=== PATIENT | female | born 1950 | race Caucasian/White ===

== ENCOUNTER 2017-10-04 06:55 | Day surgery (SDC) | payer MEDICARE ==
[2017-09-30 10:32] VITALS: BMI 21.4
[~2017-10-04 06:55] MED LIST: Prevnar 13-Val Conj/PF 0.5 ML SYRINGE IM ONE
--- NOTE | 2017-10-04 11:22 | RAD ---
TOTAL SPINE MYELOGRAM: Date: 10-04-17 History: Upper and lower extremity radiculopathy. FINDINGS: Informed consent for myelogram obtained prior to the procedure. Construction Sales Manager lateral and frontal imaging of the lumbar spine demonstrates rotoscoliosis of the lumbar spine with apex to the left. There is post-operative fusion hardware on the left at the L5-S1 level. Multip le spinal stimulating leads are present with generators overlying the right and left iliac bones. Lateral tie tape machine operator cervical spine radiograph demonstrates C5-6 and C6-7 anterior discectomy and fusion jared dware with disc space narrowing and anterior osteophyte formation at C3-4, C4-5 and C7-T1. Spinal sti mulating leads overlie the cervical spine posteriorly at the C3, C4, and C5 levels. Thoracic spine stimulating leads enter the midthoracic spine central canal in the T8 region and termi kortney over the T6-7 level. The patient was placed on the fluoroscopic table in the prone position and skin overlying the lumbar spine was prepped and draped in normal sterile fashion. Skin overlying the L4-5 interspace was preppe d and draped in normal sterile fashion and anesthetized with 1% buffered Lidocaine. With intermittent fluoroscopic guidance a 22 gauge spinal needle was advanced into the thecal sac and removal of the stylet yields clear cerebral spinal fluid. Approximately 10-12 cc of Isovue 300 was injected, outlining nerve roots of the cauda equina. Patient was placed in Trendelenburg and reverse Trendelenburg positions to extend the contrast media through out the cervicothoracic and lumbar spine. Patient tolerated the procedure well. IMPRESSION: Multilevel degenerative and post-operative change within the spine. Successful total spine myelogram. POS: [facility]
--- NOTE | 2017-10-04 11:43 | CT ---
CERVICAL SPINE CT MYELOGRAM: Date: 10/04/17 COMPARISON: 02/25/16. HISTORY: Upper extremity pain and radiculopathy. TECHNIQUE: Serial axial CT imaging is obtained at 2.5 mm intervals from the skull base through the upper thoraci c spine with intrathecal contrast media. Coronal and sagittal reformatted imaging obtained. FINDINGS: There are new dorsal column stimulators which are inserted via a posterior approach at C1-2 level. Th phu stimulating leads are seen along the posterior aspect of the thecal sac to the right of midline a t C2, C3, and C4 levels. There is anterior diskectomy and fusion hardware at C5-6/C6-7. There is no significant anterolisthesis or retrolisthesis seen. There is mild degenerative change at the atlantoaxial interspace. Craniocervical junction appears int act. There is good opacification of the thecal sac. C2-3: Intervertebral disc height appears within normal limits. No significant central canal or neural quintin inal stenosis. C3-4: There is disc space narrowing, degenerative end plate change, vacuum disc formation, and anterior ost eophyte formation. There is mild disc bulge with partial effacement of the ventral thecal sac and mil d central canal stenosis. There is mild uncovertebral osteophyte encroachment on the right neural for amen with mild right neural foraminal stenosis. C4-5: Mild bilateral facet and uncovertebral osteophyte formation. Mild disc bulge with partial effacement of ventral thecal sac and mild central canal stenosis. Disc space narrowing and anterior osteophyte f ormation noted. C5-6: There is mild posterior osteophyte formation in the right paracentral region with no significant cent ral canal or neural foraminal stenosis noted. C6-7: No central canal or neural foraminal stenosis. C7-T1: There is disc space narrowing and mild disc bulge with partial effacement of ventral thecal sac and m id central canal stenosis. Mild bilateral uncovertebral osteophyte formation, left greater than right , with mild right and moderate left neural foraminal stenosis. No acute osseous abnormality. No worrisome lytic or blastic bone lesion. Incompletely assessed hypodense nodular noted in the right lobe of the thyroid gland measuring up to approximately 1.5 cm, as seen on the prior examination. IMPRESSION: 1. Multilevel degenerative and postoperative change within the cervical spine as detailed above. 2. Thyroid nodule on the right, grossly unchanged. This could be best assessed via thyroid ultrasoun d. POS: [facility]
--- NOTE | 2017-10-04 11:51 | CT ---
CT MYELOGRAM OF THORACIC SPINE: Date: 10/04/17 COMPARISON: None. HISTORY: Pain and upper extremity radiculopathy. TECHNIQUE: Following the intrathecal administration of contrast media, axial CT imaging obtained at 3.75 mm inte rvals through the thoracic spine with coronal and sagittal reformatted imaging. FINDINGS: There is anterior diskectomy and fusion hardware present within the lower cervical spine at C5-6/C6-7 , better assessed on cervical spine CT myelogram. There is good opacification of the thecal sac. There is a dorsal column stimulating device present posteriorly and to the right of midline at the T6 and T7 levels. The spinal leads enter the central canal at the T7-8 level. The T11-12 level is not imaged on this exam and is evaluated on the lumbar spine CT myelogram. There is no anterolisthesis or retrolisthesis. No acute fracture is seen. T1-2: There is disc space narrowing and degenerative end plate change with disc bulge and anterior osteophy te formation causing mild central canal stenosis. There is mild bilateral neural foraminal stenosis o n the basis of facet hypertrophy, left greater than right. T2-3: There is disc space narrowing and disc bulge with mild effacement of the ventral thecal sac and mild central canal stenosis. There is mild left neural foraminal stenosis on the basis of facet hypertroph y. T3-4: There is disc space narrowing and anterior osteophyte formation. There is mild bilateral neural quintin inal stenosis on the basis of facet hypertrophy. T4-5: There is disc space narrowing and anterior osteophyte formation with no central canal stenosis. There is mild bilateral facet hypertrophy, right greater than left, with mild bilateral neural foraminal s tenosis. T5-6: Mild disc bulge with no central canal stenosis. Disc space narrowing and degenerative end plate mao e noted. No neural foraminal stenosis. T6-7: Disc space narrowing, degenerative end plate change, and anterior osteophyte formation noted. No sign ificant central canal or neural foraminal stenosis. T7-8: Disc space narrowing and small right paracentral disc protrusion with no associated central canal or neural foraminal stenosis. T8-9: Disc space narrowing, anterior osteophyte formation, and mild disc bulge present with no significant central canal or neural foraminal stenosis. T9-10: Disc space narrowing, degenerative end plate change, anterior osteophyte formation, and mild disc bul ge with no significant central canal or neural foraminal stenosis. T10-11: Disc space narrowing and anterior osteophyte formation with degenerative end plate change and mild bi lateral facet hypertrophy. Mild bilateral neural foraminal stenosis. No significant central canal mann nosis. The imaged lung parenchyma appears grossly unremarkable. No worrisome lytic or blastic bone lesion. IMPRESSION: Postoperative and degenerative changes are noted within the thoracic spine as described above. No sig nificant central canal stenosis seen. POS: [facility]
[2017-10-04 11:52] VITALS: BP 142/46; TEMP 96.9
--- NOTE | 2017-10-04 12:25 | CT ---
CT MYELOGRAM OF THE LUMBAR SPINE: Date: 10/04/17 COMPARISON: 02/25/16. HISTORY: Bilateral lower extremity radiculopathy. TECHNIQUE: Serial axial CT imaging is obtained at 2.5 mm intervals from the lower thoracic spine through the sac rum with intrathecal contrast media. Coronal and sagittal reformatted imaging obtained. FINDINGS: T11-12: There is disc space narrowing and disc desiccation with mild disc bulge. Bilateral facet hypertrophy noted with mild bilateral neural foraminal stenosis, left greater than right. T12-L1: Mild bilateral facet hypertrophy. No evidence of significant central canal or neural foraminal stenos is. L1-2: Bilateral facet hypertrophy and hypertrophy of the ligamentum flavum with disc space narrowing and mi ld disc bulge. No significant central canal or neural foraminal stenosis. L2-3: Mild disc bulge. No central canal stenosis. Mild bilateral facet hypertrophy with no significant neur al foraminal stenosis. L3-4: There is moderate bilateral facet hypertrophy, right greater than left. There is mild disc bulge with a mild degree of central canal stenosis, which appears similar when compared to prior imaging. There is facet hypertrophy bilaterally with osteophyte encroachment on the left neural foramen and mild le ft neural foraminal stenosis. No significant right neural foraminal stenosis. L4-5: Left-sided pedicle screw noted at L4 and L5 with a vertically oriented interlocking kelsei. There is an intervertebral disc device present. There is disc space narrowing and disc bulge with mild stable rosamaria tral canal stenosis. Mild neural foraminal stenosis noted on the right. L5-S1`: Bilateral laminectomy change is noted. There is osseous fusion of the facet joints. No significant ce ntral canal or neural foraminal stenosis. There is a focus of sclerosis within the iliac bone on the left superiorly, unchanged when compared t o prior imaging, suggesting postoperative change. The visualized retroperitoneal structures appear grossly unremarkable. There is a stable degree of mild rotolevoscoliosis. IMPRESSION: No significant interval change in multilevel postoperative and degenerative change as described above . POS: [facility]
== END 2017-10-04 10:15 | disposition home or self-care (01) ==
LOC: RAD 06:55
PROVIDERS: ATTEND Specialist
PROC: B00B1ZZ Plain Radiography of Spinal Cord using Low Osmolar Contrast (ICD-10-PCS; principal; 2017-10-04)
DX: M54.13 Radiculopathy, cervicothoracic region (principal); M54.14 Radiculopathy, thoracic region; M96.1 Postlaminectomy syndrome, not elsewhere classified; Z91.048 Other nonmedicinal substance allergy status; Z88.8 Allergy status to other drugs, medicaments and biological substances; Z98.890 Other specified postprocedural states
CPT/HCPCS: 62305; 72126; 72129; 72132

== ENCOUNTER 2018-01-26 08:58 | Outpatient (CLI) | payer MEDICARE ==
--- NOTE | 2018-01-26 12:08 | CT ---
CHEST CT WITHOUT CONTRAST: Date: 01/26/18 HISTORY: Left neck pain, radiating to left shoulder and down the left leg for many years. Patient has a pain s timulator of the neck and lower back. Left shoulder pain. Exam is requested to evaluate for lead in t he left shoulder. COMPARISON: None. TECHNIQUE: Chest CT is performed without contrast. Coronal reformatted images are submitted for interpretation. FINDINGS: Heterogeneous right thyroid lobe, incompletely evaluated. Limited evaluation of the mediastinal structures by lack of IV contrast. No mass, lymphadenopathy, or hematoma. Minimal atherosclerosis of the aortic knob. Heart size is within normal limits. No signifi cant pericardial fluid. Visualized aorta has a normal caliber. No periaortic fat stranding. Visualized upper solid organs are unremarkable. Trachea and central bronchi are patent. There is a small bulla in the right upper lobe. There are no suspicious masses in the lung parenchyma. No consolidation, pleural effusion, or pneumothorax. There are no lytic or blastic lesions of the osseous structures. There is evidence of an anterior cervical fusion plate in the lower cervical spine. There is a dorsal column stimulator with wires tracking along the posterior left and right paraspinal region, predominantly in the subcutaneous fat. The three separate sets of dorsal column stimulators do not have any significant inflammatory changes in the subcutaneous fat. There is a set of dorsal co lumn stimulator wires that enter the thecal sac at the T9 level and terminate at approximately the T6 level. Second set of wires course along the posterior aspect of the neck and enter the central spina l canal at approximately T1. Third set of wires also courses along the posterior left thoracic soft t issues and does not enter the canal on the images provided. At the level of the marker, there is no evidence of a solid or cystic mass. No evidence of lymphadeno robert. No evidence of induration of the fat. Two separate wires are noted in the region of the intere st which appear to be uncomplicated. IMPRESSION: Total of three separate neurostimulator wires. One set is along the right posterior region and two se ts are along the left posterior region. No abnormality at the level of the marker. POS: [facility]
== END 2018-01-26 08:59 | disposition home or self-care (01) ==
LOC: SCSCT 08:58
PROVIDERS: ATTEND Specialist
DX: G62.9 Polyneuropathy, unspecified (principal)
CPT/HCPCS: 36415; 71250; 80053; 82306; 84439; 84443

== ENCOUNTER 2018-08-07 11:43 | Outpatient (CLI) | payer MEDICARE ==
[2018-08-07 13:03] LABS: Hemoglobin 13.3 g/dL (12.0-16.0); Mean Corpuscular HGB CONC 33.7 g/dL (32.0-36.0); Mean Corpuscular Hemoglobin 32.9 pg (27.0-31.0); Mean Corpuscular Volume 97.4 fL (78.0-98.0); Platelet Count 235 thou/uL (130-400); RBC Distribution Width 10.8 % (11.5-14.5); Red Blood Cell (RBC) Count 4.03 mill/uL (4.20-5.40); White Blood Cell (WBC) Count 6.1 thou/uL (4.8-10.8)
[2018-08-07 13:11] LABS: PTT 30.9 SEC (22.9-36.1)
[2018-08-07 13:16] LABS: Prothrombin Time 12.9 SEC (12.0-14.7)
[2018-08-07 13:18] LABS: Anion Gap 13 mmol/L (10-20); BUN (Urea Nitrogen) 12 mg/dL (9.8-20.1); Calc. Creatinine Clearance 0 mL/min (70-130); Calcium 9.5 mg/dL (7.8-10.44); Carbon Dioxide 29 mmol/L (23-31); Chloride 102 mmol/L (98-107); Estimated GFR-MDRD 76; Glucose 93 mg/dL (80-115); Potassium 3.4 mmol/L (3.5-5.1); Sodium 141 mmol/L (136-145)
--- NOTE | 2018-08-08 21:08 | EKG ---
Test Reason : Blood Pressure : / mmHG Vent. Rate : 075 BPM Atrial Rate : 075 BPM P-R Int : 122 ms QRS Dur : 082 ms QT Int : 378 ms P-R-T Axes : 054 068 061 degrees QTc Int : 422 ms Normal sinus rhythm Septal infarct , age undetermined Abnormal ECG When compared with ECG of 31-MAR-2016 11:19, Septal infarct is now Present Confirmed by LEIGHTON PRABHAKAR, DR. Hernandez ([id number]) on 08/08/2018 9:08:05 PM Referred By: JAIME Confirmed By:DR. David MANZANARES MD
== END 2018-08-07 11:44 | disposition home or self-care (01) ==
LOC: LABBT 11:43
PROVIDERS: ATTEND Surgery
DX: Z01.818 Encounter for other preprocedural examination (principal); G37.9 Demyelinating disease of central nervous system, unspecified
CPT/HCPCS: 80048; 85027; 85610; 85730; 93005; 93010

== ENCOUNTER 2018-08-10 09:11 | Day surgery (SDC) | payer MEDICARE ==
[2018-08-07 11:58] VITALS: BMI 22.6
[2018-08-10] MEDS ORDERED: Thrombin 5000 UNITS/5 ML VIAL ONE (10:36)
[2018-08-10] MEDS ORDERED: Bacitracin Zinc Ointment 30 gm TUBE ONE (10:36)
[2018-08-10] MEDS ORDERED: Sodium Chloride 0.9% 10 ML ONE (10:36)
[2018-08-10] MEDS ORDERED: Fentanyl 100 MCG/2 ML VIAL ONE ×3 (11:06→15:35)
[2018-08-10] MEDS ORDERED: Bupivacaine HCl 0.5%/Epinephrine 1:200,000/PF 30 ml Vial ONE (11:52)
[2018-08-10] MEDS ORDERED: PROPOFOL 200 MG/20 ML VIAL ONE (12:08)
[2018-08-10] MEDS ORDERED: Ketorolac Tromethamine 30 MG/ML VIAL ONE (12:08)
[2018-08-10] MEDS ORDERED: PHENYLEPHRINE-NS 100 MCG/ML 10 ML SYRINGE ONE (12:08)
[2018-08-10] MEDS ORDERED: Esmolol 100 MG/10 ML VIAL ONE (12:08)
[2018-08-10] MEDS ORDERED: Ondansetron PF 4 MG/2 ML Vial ONE (12:08)
[2018-08-10] MEDS ORDERED: Rocuronium Bromide 10 MG/ML (10ML VIAL) ONE (12:08)
[2018-08-10] MEDS ORDERED: Lidocaine 1% PF 5 ML VIAL ONE (12:08)
[2018-08-10] MEDS ORDERED: Dexamethasone 20 MG/5 ML VIAL ONE (12:08)
[2018-08-10] MEDS ORDERED: Glycopyrrolate 0.2 MG/ML 5 ML SYRINGE ONE (12:08)
[2018-08-10] MEDS ORDERED: Ondansetron HCl/PF 4 MG/2 ML Vial IVP PRN (13:23)
[2018-08-10] MEDS ORDERED: Meperidine HCl/PF 25 MG/ML VIAL SLOW IVP PRN (13:23)
[2018-08-10] MEDS ORDERED: Promethazine HCl 25 MG/ML VIAL SLOW IVP PRN (13:23)
[2018-08-10] MEDS ORDERED: Promethazine HCl 25 MG/ML VIAL IM PRN (13:23)
[2018-08-10] MEDS ORDERED: HYDROmorphone 2 MG/ML VIAL SLOW IVP PRN (13:23)
[2018-08-10] MEDS ORDERED: Morphine Sulfate 2 MG/ML SYRINGE SLOW IVP PRN (13:23)
[2018-08-10] MEDS ORDERED: PACU-Morphine 4MG/ML VIAL SLOW IVP PRN (13:23)
[2018-08-10] MEDS ORDERED: tiZANidine HCl 4 MG TAB PO PRN (15:00)
[2018-08-10] MEDS ORDERED: Acetaminophen/Codeine 30-300mg Tablet PO PRN (15:15)
[2018-08-10] MEDS ORDERED: Mag-Al 1200 mg/1200 mg/30 ML UDCUP PO PRN (15:15)
[2018-08-10] MEDS ORDERED: traMADol HCl 50 MG TAB PO PRN (15:15)
[2018-08-10] MEDS ORDERED: Promethazine HCl 25 MG/ML VIAL IVPB PRN (15:15)
[2018-08-10] MEDS ORDERED: Milk Of Magnesia 30 ML UDCUP PO PRN (15:15)
[2018-08-10] MEDS ORDERED: Bisacodyl 10 MG SUPP PR PRN (15:15)
[2018-08-10] MEDS ORDERED: Acetaminophen 325 MG TAB PO PRN (15:15)
[2018-08-10] MEDS ORDERED: Sodium Chloride 0.9% 1,000 ML IV SCH (15:15)
[2018-08-10] MEDS ORDERED: HYDROmorphone 2 MG/ML VIAL ONE ×2 (15:17→15:43)
[2018-08-10] MEDS ORDERED: Midazolam HCl 2 mg/2 ml Vial ONE (15:22)
[2018-08-10] MEDS ORDERED: Meperidine HCl/PF 25 MG/ML VIAL ONE (16:04)
[2018-08-10] MEDS ORDERED: Fleet Enema 133 ML BOT PR PRN (16:30)
[2018-08-10] MEDS ORDERED: SUMAtriptan Succinate 50 MG TAB PO PRN (16:39)
[2018-08-10] MEDS ORDERED: oxyCODONE 5 MG TAB PO SCH (18:00)
[2018-08-10] MEDS ORDERED: CEFAZOLIN 2 GM in Premix Bag 1 BAG IVPB SCH (19:00)
[2018-08-11] MEDS ORDERED: Estrogens, Conjugated 0.3 MG TAB PO SCH (09:00)
--- NOTE | 2018-08-11 13:01 | OP ---
DATE OF PROCEDURE: 08/10/2018 NEWS INTERN: Wally Mcintosh PA-C Notation should be done as I did the surgery with Hitesh King MD PREOPERATIVE DIAGNOSIS: Need for MRI to assess neural axis. POSTPROCEDURE DIAGNOSIS: Need for MRI to assess neural axis. PROCEDURE PERFORMED: 1. Removal of cervical spinal cord stimulator paddle lead interlaminar placed at an outside institution. 2. Removal of thoracic spinal cord stimulator paddle lead placed with interlaminar approach. 3. Removal of percutaneous spinal cord stimulator. 4. Removal of cervical and thoracic battery packs. DESCRIPTION OF PROCEDURE: After informed consent was obtained from the patient, the patient was brought to the OR. Proper patient, pause, and identification were carried out. She was positioned under excellent general endotracheal anesthesia and positioned prone on the OR table. Following placement of the Coelho Alfredo head of cytogenetics, her head was secured in neutral position. We identified a posterior cervical approach both superior and inferior two different incisions. A midline thoracic approach and two battery generator subcu incisions over the batteries in the left and right lumbar region. These regions were sterilely cleansed, prepared, and draped. Proper patient, pause, and identification were carried out. I then opened up the posterior cervical region. Dr. King and I removed the cervical paddle and lead portions of it were fractured. We were able to get this out in its entirety. We also removed the wires along with the battery. We then turned our attention to the percutaneous lead. This was removed in the cervical region. We then turned our attention further to the mid thoracic and the stimulator and lead and paddle were all removed as well and again the battery was removed. Copious irrigation occurred throughout and all foreign bodies were removed as the goal was to remove these except for the instrumentation and lumbar spine and cervical spine. Copious irrigation occurred throughout as did maximizing hemostasis. The wounds were closed in anatomic layers. Job ID: [id number]
== END 2018-08-10 18:06 | disposition home or self-care (01) ==
LOC: SDC 09:11
PROVIDERS: ATTEND Surgery
PROC: 00PU0MZ Removal of Neurostimulator Lead from Spinal Canal, Open Approach (ICD-10-PCS; principal; 2018-08-10)
PROC: 0JPT0MZ Removal of Stimulator Generator from Trunk Subcutaneous Tissue and Fascia, Open Approach (ICD-10-PCS; 2018-08-10)
DX: T85.112A Breakdown (mechanical) of implanted electronic neurostimulator of spinal cord electrode (lead), initial encounter (principal); H53.9 Unspecified visual disturbance; R47.89 Other speech disturbances; R20.2 Paresthesia of skin; R53.1 Weakness; M19.90 Unspecified osteoarthritis, unspecified site; Z79.891 Long term (current) use of opiate analgesic; Z79.899 Other long term (current) drug therapy; Z88.8 Allergy status to other drugs, medicaments and biological substances; Z91.048 Other nonmedicinal substance allergy status; Z98.1 Arthrodesis status
CPT/HCPCS: 76000; J0670; J1100; J1170; J1885; J2001; J2175; J2250; J2405; J2704; J3010; J3370; J3490

== ENCOUNTER 2018-09-26 03:36 | Outpatient (CLI) | payer MEDICARE ==
[2018-09-26 09:40] LABS: Mean Corpuscular HGB CONC 34.2 g/dL (32.0-36.0); Mean Corpuscular Hemoglobin 33.2 pg (27.0-31.0); Mean Corpuscular Volume 97.3 fL (78.0-98.0); Mean Platelet Volume 7.7 fL (7.4-10.4); Platelet Count 249 thou/uL (130-400); RBC Distribution Width 10.7 % (11.5-14.5); Red Blood Cell (RBC) Count 3.91 mill/uL (4.20-5.40); White Blood Cell (WBC) Count 4.6 thou/uL (4.8-10.8)
[2018-09-26 09:47] LABS: Prothrombin Time 13.4 SEC (12.0-14.7)
[2018-09-26 09:48] LABS: PTT 30.9 SEC (22.9-36.1)
[2018-09-26 09:58] LABS: Anion Gap 11 mmol/L (10-20); BUN (Urea Nitrogen) 15 mg/dL (9.8-20.1); Calc. Creatinine Clearance 0 mL/min (70-130); Calcium 9.3 mg/dL (7.8-10.44); Carbon Dioxide 29 mmol/L (23-31); Chloride 105 mmol/L (98-107); Estimated GFR-MDRD 78; Glucose 98 mg/dL (80-115); Potassium 3.5 mmol/L (3.5-5.1); Sodium 141 mmol/L (136-145)
== END 2018-09-26 03:37 | disposition home or self-care (01) ==
LOC: LABBT 03:36
PROVIDERS: ATTEND Surgery
DX: Z01.818 Encounter for other preprocedural examination (principal); M47.12 Other spondylosis with myelopathy, cervical region
CPT/HCPCS: 80048; 85027; 85610; 85730; 93005; 93010

== ENCOUNTER 2018-09-26 08:30 | Inpatient (IN) | payer MEDICARE ==
[2018-09-26 08:52] VITALS: BMI 20.3
[2018-10-03] MEDS ORDERED: Sodium Chloride 0.9% 10 ML ONE (11:54)
[2018-10-03] MEDS ORDERED: Bacitracin Zinc Ointment 30 gm TUBE ONE (11:54)
[2018-10-03] MEDS ORDERED: Thrombin 5000 UNITS/5 ML VIAL ONE (11:54)
[2018-10-03] MEDS ORDERED: Famotidine/PF 20 mg/2ml Vial ONE (12:06)
[2018-10-03] MEDS ORDERED: Fentanyl 100 MCG/2 ML VIAL ONE ×3 (12:23→16:27)
[2018-10-03] MEDS ORDERED: diphenhydrAMINE 50 MG/ML VIAL ONE (12:52)
[2018-10-03] MEDS ORDERED: Dexamethasone 20 MG/5 ML VIAL ONE (12:52)
[2018-10-03] MEDS ORDERED: Ondansetron PF 4 MG/2 ML Vial ONE (12:52)
[2018-10-03] MEDS ORDERED: PROPOFOL 200 MG/20 ML VIAL ONE (12:52)
[2018-10-03] MEDS ORDERED: Rocuronium Bromide 10 MG/ML (10ML VIAL) ONE (12:52)
[2018-10-03] MEDS ORDERED: Glycopyrrolate 0.2 MG/ML 5 ML SYRINGE ONE (12:52)
[2018-10-03] MEDS ORDERED: Lidocaine 1% PF 5 ML VIAL ONE (12:52)
[2018-10-03] MEDS ORDERED: ePHEDrine 50 MG/ML VIAL ONE (12:52)
[2018-10-03] MEDS ORDERED: HYDROmorphone 2 MG/ML VIAL ONE ×3 (13:35→16:23)
[2018-10-03] MEDS ORDERED: Fleet Enema 133 ML BOT PR PRN (16:01)
[2018-10-03] MEDS ORDERED: Acetaminophen/Codeine 30-300mg Tablet PO PRN (16:01)
[2018-10-03] MEDS ORDERED: Mag-Al 1200 mg/1200 mg/30 ML UDCUP PO PRN (16:01)
[2018-10-03] MEDS ORDERED: Milk Of Magnesia 30 ML UDCUP PO PRN (16:01)
[2018-10-03] MEDS ORDERED: traMADol HCl 50 MG TAB PO PRN (16:01)
[2018-10-03] MEDS ORDERED: Promethazine HCl 25 MG/ML VIAL IM/IV PRN (16:01)
[2018-10-03] MEDS ORDERED: Acetaminophen 325 MG TAB PO PRN (16:01)
[2018-10-03] MEDS ORDERED: Bisacodyl 10 MG SUPP PR PRN (16:01)
[2018-10-03] MEDS ORDERED: ALPRAZolam 0.5 MG TAB PO PRN (16:04)
[2018-10-03] MEDS ORDERED: HYDROmorphone 2 MG/ML VIAL SLOW IVP PRN (16:09)
[2018-10-03] MEDS ORDERED: Promethazine HCl 25 MG/ML VIAL IM PRN ×2 (16:09→16:38)
[2018-10-03] MEDS ORDERED: Meperidine HCl/PF 25 MG/ML VIAL SLOW IVP PRN (16:09)
[2018-10-03] MEDS ORDERED: Promethazine HCl 25 MG/ML VIAL SLOW IVP PRN (16:09)
[2018-10-03] MEDS ORDERED: Metoprolol Tartrate 5 MG/5 ML VIAL ONE (16:16)
[2018-10-03] MEDS ORDERED: Ketamine 50 MG/ML (10ML VIAL) ONE (16:18)
[2018-10-03] MEDS ORDERED: Morphine 2 MG/ML SYRINGE SLOW IVP PRN (16:20)
[2018-10-03] MEDS ORDERED: SUMAtriptan Succinate 50 MG TAB PO PRN (16:28)
[2018-10-03] MEDS ORDERED: Metoprolol Tartrate 5 MG/5 ML VIAL IVP PRN (16:30)
[2018-10-03] MEDS ORDERED: HYDROmorphone 10 mg/100 ml CADD IVPB PRN (16:38)
[2018-10-03] MEDS ORDERED: diphenhydrAMINE 25 MG CAP PO PRN (16:38)
[2018-10-03] MEDS ORDERED: Zolpidem Tartrate 5 MG TAB PO PRN (16:38)
[2018-10-03] MEDS ORDERED: Naloxone HCl 0.4 mg/ml Vial IV PRN (16:38)
[2018-10-03] MEDS ORDERED: diphenhydrAMINE 50 MG/ML VIAL IVP PRN (16:38)
[2018-10-03] MEDS ORDERED: diphenhydrAMINE 50 MG/ML VIAL IM PRN (16:38)
[2018-10-03] MEDS ORDERED: hydrALAZINE 20 MG/ML VIAL SLOW IVP SCH (16:45)
[2018-10-03] MEDS ORDERED: hydrALAZINE 20 MG/ML VIAL ONE (16:47)
[2018-10-03] MEDS ORDERED: Midazolam HCl 2 mg/2 ml Vial ONE (16:54)
[2018-10-03] MEDS ORDERED: Midazolam HCl 2 mg/2 ml Vial SLOW IVP PRN (16:56)
[2018-10-03] MEDS ORDERED: oxyCODONE 5 MG TAB PO SCH (18:00)
[2018-10-03] MEDS ORDERED: CEFAZOLIN 2 GM in Premix Bag 1 BAG IVPB SCH (18:30)
[2018-10-03] MEDS: Sodium Chloride 0.9% 1,000 ML IV SCH ×2 (19:23→20:20)
[2018-10-03] MEDS: Communication Order-Pharmacy FS SCH (19:24)
[2018-10-03] MEDS: Ondansetron PF 4 MG/2 ML Vial IVP PRN (20:07)
[2018-10-03] MEDS: tiZANidine HCl 4 MG TAB PO PRN (20:07)
[2018-10-03] MEDS: CEFAZOLIN 2 GM in Premix Bag 1 BAG IVPB SCH (20:08)
[2018-10-03] MEDS ORDERED: Zolpidem Tartrate 5 MG TAB PO SCH (21:00)
[2018-10-04] MEDS: SUMAtriptan Succinate 25 MG TAB PO PRN ×2 (00:14→05:24)
[2018-10-04] MEDS ORDERED: Acetaminophen 1,000 MG in Premix Bag 1 BAG IVPB SCH (01:45)
[2018-10-04] MEDS ORDERED: Ondansetron PF 4 MG/2 ML Vial IVP SCH (01:45)
[2018-10-04] MEDS ORDERED: diphenhydrAMINE 25 MG CAP PO SCH (01:45)
[2018-10-04] MEDS: CEFAZOLIN 2 GM in Premix Bag 1 BAG IVPB SCH (05:05)
[2018-10-04] MEDS: tiZANidine HCl 4 MG TAB PO PRN ×3 (05:30→23:47)
[2018-10-04] MEDS: DULoxetine 30 MG CAP PO SCH (09:27)
[2018-10-04] MEDS: Ondansetron PF 4 MG/2 ML Vial IVP PRN (09:27)
--- NOTE | 2018-10-04 10:04 | PRG ---
DATE OF SERVICE: 10/04/2018 Ms. Preciado is now postoperative day 1 from C3 through C5 laminectomy and fusion. Obviously, surgical incisional pain has been a challenge and also left upper extremity pain, this has resolved postoperatively. She just has neck pain and we will work on mobilizing her today. Job ID: [id number]
--- NOTE | 2018-10-04 10:23 | OP ---
DATE OF PROCEDURE: 10/03/2018 LOCATION: OR 12. WOUND CLASSIFICATION: Type 1 wound. KEY MAKER: Dayna. PREPROCEDURE DIAGNOSES: Cervical stenosis, myelopathy, with history of prior C5 through C7 surgery POSTPROCEDURE DIAGNOSES: Cervical stenosis, myelopathy with history of prior C5 through C7 surgery. PROCEDURES PERFORMED: 1. C3-C4, C4-C5 laminectomies, partial facetectomies, foraminotomies. 2. Screw kelsie fixation C3, C4, C5 bilaterally with posterolateral arthrodesis at C3-C4, C4-C5. 3. Instrumented fusion at C3, C4, C5, posterolaterally. 4. Arthrodesis with use of local bone autograft obtained from same incision and allograft at C3, C4, C5. DESCRIPTION OF PROCEDURE: After informed consent was obtained from the patient, the patient was brought to the OR. Proper patient, pause, and identification were carried out. She was placed under excellent general endotracheal anesthesia and the Coelho pin was secured to her skull. She was then positioned prone on the OR table in the Coelho balance screwhead polisher. I secured the cervical spine in neutral position. We then turned our attention to sterile cleansing, preparation and draping of her prior cervical wound at the C2 segment. With sterile cleansing, preparation, and draping occurred, the wound was then opened with a combination of sharp, monopolar, and blunt dissection. The C3, C4, C5 segments were exposed. Localization film again confirmed our area of interest, and C3, C4, C5 laminectomy, partial facetectomy, foraminotomies were performed with excellent decompression of spinal cord nerve roots. There was exuberant scar tissue where the prior spinal cord stimulator had been at the C3-C4 segment and this was removed with excellent decompression. I then turned our attention to placement of screws and lateral masses at C3, C4, C5. Screws were placed. Rods were placed and final tightening occurred. We were satisfied with our decompression and construct. Hemostasis was maximized throughout. The wound was then closed in anatomic layers following sprinkling of the vancomycin powder. The patient was then emerged from anesthesia. Job ID: [id number]
[2018-10-04] MEDS: Communication Order-Pharmacy FS SCH (15:36)
[2018-10-04] MEDS: Sodium Chloride 0.9% 1,000 ML IV SCH (19:33)
[2018-10-04] MEDS: Estrogens, Conjugated 0.3 MG TAB PO SCH (20:23)
[2018-10-05] MEDS ORDERED: Cyclobenzaprine 10 MG TAB PO SCH (01:00)
[2018-10-05] MEDS: Ketorolac Tromethamine 30 MG/ML VIAL IVP PRN ×2 (08:31→15:10)
[2018-10-05] MEDS: tiZANidine HCl 4 MG TAB PO PRN (08:33)
[2018-10-05] MEDS: DULoxetine 30 MG CAP PO SCH (08:33)
[2018-10-05] MEDS: Sodium Chloride 0.9% 1,000 ML IV SCH (08:34)
--- NOTE | 2018-10-05 10:44 | PRG ---
DATE OF SERVICE: 10/05/2018 This is Wally Mcintosh PA-C dictating a report for Blair Mckeon MD. Ms. Corrigan is postoperative day #2, having undergone multilevel cervical laminectomies and fusion. She did require her PROCESS CONTROL TECHNICIAN overnight. However, she notes that her pain is located in the bilateral trapezius region and incisional pain and she believes it is more related to muscle spasm. We will discontinue her PROCESS CONTROL TECHNICIAN and utilize her muscle relaxants today, but hope for dismissal early this afternoon. Otherwise, she has met criteria for discharge other than pain control. Job ID: [id number]
[2018-10-05 12:02] VITALS: BP 123/73; TEMP 98.4
[2018-10-05] MEDS: Estrogens, Conjugated 0.3 MG TAB PO SCH (12:42)
[2018-10-05] MEDS ORDERED: oxyCODONE 5 MG TAB PO PRN (16:25)
== END 2018-10-05 18:13 | disposition home or self-care (01) | DRG 519 ==
LOC: SURG A 10-03 08:48 → SJJU 10-03 18:06
PROVIDERS: ADMIT Surgery; ATTEND Surgery
PROC: 0RH104Z Insertion of Internal Fixation Device into Cervical Vertebral Joint, Open Approach (ICD-10-PCS; principal; 2018-10-03)
PROC: 00NW0ZZ Release Cervical Spinal Cord, Open Approach (ICD-10-PCS; 2018-10-03)
DX: M48.02 Spinal stenosis, cervical region (principal); G99.2 Myelopathy in diseases classified elsewhere
CPT/HCPCS: 76000; C1713; J0131; J0360; J0690; J1100; J1170; J1200; J1885; J2001; J2250; J2405; J2550; J2704; J3010; J3370; J3490; Q0163; S0028

== ENCOUNTER 2018-10-31 10:08 | Outpatient (CLI) | payer MEDICARE ==
--- NOTE | 2018-10-31 11:25 | RAD ---
CERVICAL SPINE 4 VIEWS: Date: 10/31/18 HISTORY: Radiculopathy. COMPARISON: Cervical spine MRI dated 08/23/18. FINDINGS: Posterior spinal fusion hardware at C3-C5. ACDF at C5-C7 with diskectomy changes. No hardware complic ation. Open-mouth odontoid view appears normal. Advanced degenerative disc space height loss at C7-T1. IMPRESSION: 1. Degenerative changes. No acute abnormality. 2. Satisfactory postoperative appearance. POS: [facility]
== END 2018-10-31 10:09 | disposition home or self-care (01) ==
LOC: RAD 10:08
PROVIDERS: ATTEND Specialist
DX: M54.13 Radiculopathy, cervicothoracic region (principal); M47.812 Spondylosis without myelopathy or radiculopathy, cervical region; Z98.890 Other specified postprocedural states
CPT/HCPCS: 72050

== ENCOUNTER 2018-11-15 08:53 | Outpatient (CLI) | payer MEDICARE ==
--- NOTE | 2018-11-15 10:24 | RAD ---
CERVICAL SPINE 3 VIEWS: Date: 11/15/18 INDICATION: Neck pain. Prior cervical surgery. FINDINGS: Postop changes are noted. Posterior pedicle screws and rods are seen at C3, C4, and C5. Anterior plate and screws transfix C4, C5, and C6 with interbody implant and partial fusion. Posterior spondylosis at C3-4 and C4-5 appear to encroach into the spinal canal. Posterior alignment is maintained. Vertebral body height is preserved. Anterior osteophytes. Loss of disc space at C3-4 a nd C4-5. Loss of disc space at C7-T1 with prominent hypertrophic changes. IMPRESSION: Postoperative and degenerative changes of the cervical spine noted as described. POS: [facility]
== END 2018-11-15 08:54 | disposition home or self-care (01) ==
LOC: TBSIIMAG 08:53
PROVIDERS: ATTEND Surgery
DX: M54.2 Cervicalgia (principal); Z98.890 Other specified postprocedural states; M47.812 Spondylosis without myelopathy or radiculopathy, cervical region
CPT/HCPCS: 72040

== ENCOUNTER 2019-01-30 16:16 | Outpatient (CLI) | payer MEDICARE ==
--- NOTE | 2019-01-30 16:32 | RAD ---
EXAM: 2 views of the abdomen HISTORY: Intestinal obstruction COMPARISON: None FINDINGS: 2 views of the abdomen shows a nonspecific, nonobstructive bowel gas pattern. No free air o r air-fluid levels are seen on upright examination. No suspicious calcifications are seen. Postsurgical changes are seen in the spine. IMPRESSION: No evidence of bowel obstruction.
== END 2019-01-30 16:17 | disposition home or self-care (01) ==
LOC: RAD 16:16
PROVIDERS: ATTEND Surgery
DX: K56.609 Unspecified intestinal obstruction, unspecified as to partial versus complete obstruction (principal)
CPT/HCPCS: 74019

== ENCOUNTER 2019-04-13 08:27 | Outpatient (CLI) | payer MEDICARE ==
--- NOTE | 2019-04-13 12:37 | CT ---
CT ABDOMEN AND PELVIS WITH IV AND ORAL CONTRAST: HISTORY: Internal hernia. Weight gain. Diarrhea and constipation on and off for the past year. FINDINGS: There is a calcified granuloma at the left lung base. The liver, spleen, pancreas, adrenal glands and kidneys are normal. No calcified gallstones are seen. No free air, free fluid or lymphadenopathy is noted in the abdomen or pelvis. The small bowel loops are not abnormally dilated. There are vascular calcifications without evidence of aneurysmal dilatation of the abdominal aorta. There are degenerative changes in the spine. Postop changes are noted at the L5-S1 level. IMPRESSION: No acute process. POS: [facility]
== END 2019-04-13 08:28 | disposition home or self-care (01) ==
LOC: SCSCT 08:27
PROVIDERS: ATTEND Surgery
DX: K46.9 Unspecified abdominal hernia without obstruction or gangrene (principal)
CPT/HCPCS: 74177; 82565

== ENCOUNTER 2019-10-30 06:04 | Outpatient (CLI) | payer MEDICARE, OTHER ==
[2019-10-30 16:29] LABS: Hemoglobin 14.4 g/dL (12.0-16.0); Mean Corpuscular HGB CONC 33.1 g/dL (32.0-36.0); Mean Corpuscular Hemoglobin 31.6 pg (27.0-31.0); Mean Corpuscular Volume 95.5 fL (78.0-98.0); Platelet Count 285 thou/uL (130-400); RBC Distribution Width 12.8 % (11.5-14.5); Red Blood Cell (RBC) Count 4.57 mill/uL (4.20-5.40); White Blood Cell (WBC) Count 7.1 thou/uL (4.8-10.8)
[2019-10-30 16:43] LABS: Prothrombin Time 13.1 sec (12.0-14.7)
[2019-10-30 16:44] LABS: Anion Gap 13 mmol/L (10-20); BUN (Urea Nitrogen) 12 mg/dL (9.8-20.1); Calc. Creatinine Clearance 0 mL/min (70-130); Calcium 9.9 mg/dL (7.8-10.44); Carbon Dioxide 28 mmol/L (23-31); Chloride 105 mmol/L (98-107); Estimated GFR-MDRD 72; Glucose 89 mg/dL (83-110); Potassium 3.5 mmol/L (3.5-5.1); Sodium 142 mmol/L (136-145)
[2019-10-31 13:50] LABS: SARS-CoV-2 MS2 Positive; SARS-CoV-2 N Gene Negative; SARS-CoV-2 S Gene Negative; SARS-CoV-2 orf1ab Negative
== END 2019-10-30 06:05 | disposition home or self-care (01) ==
LOC: LABBT 06:04
PROVIDERS: ATTEND Surgery
DX: Z01.812 Encounter for preprocedural laboratory examination (principal); Z11.59 Encounter for screening for other viral diseases; M51.16 Intervertebral disc disorders with radiculopathy, lumbar region; M48.062 Spinal stenosis, lumbar region with neurogenic claudication
CPT/HCPCS: 80048; 85027; 85610; 85730; U0003; 87635; 93005; 93010

== ENCOUNTER 2019-11-02 09:55 | Inpatient (IN) | payer MEDICARE, OTHER ==
[2019-10-29 11:38] VITALS: BMI 26.5
[2019-11-02] MEDS ORDERED: Dexamethasone 20 MG/5 ML VIAL ONE (10:48)
[2019-11-02] MEDS ORDERED: Rocuronium Bromide 10 MG/ML (10ML VIAL) ONE (10:48)
[2019-11-02] MEDS ORDERED: Ondansetron PF 4 MG/2 ML Vial ONE (10:48)
[2019-11-02] MEDS ORDERED: Glycopyrrolate 0.2 MG/ML 5 ML SYRINGE ONE (10:48)
[2019-11-02] MEDS ORDERED: PROPOFOL 200 MG/20 ML VIAL ONE (10:48)
[2019-11-02] MEDS ORDERED: Lidocaine 1% PF 5 ML VIAL ONE (10:48)
[2019-11-02] MEDS ORDERED: Sodium Chloride 0.9% 0 ML ONE (12:09)
[2019-11-02] MEDS ORDERED: Thrombin 5000 UNITS/5 ML VIAL ONE (12:09)
[2019-11-02] MEDS ORDERED: Fentanyl 100 MCG/2 ML VIAL ONE ×4 (12:36→16:39)
[2019-11-02] MEDS ORDERED: HYDROmorphone 2 MG/ML VIAL ONE ×2 (14:16→15:06)
[2019-11-02] MEDS ORDERED: Milk Of Magnesia 30 ML UDCUP PO PRN (14:37)
[2019-11-02] MEDS ORDERED: Fleet Enema 133 ML BOT PR PRN (14:37)
[2019-11-02] MEDS ORDERED: traMADol HCl 50 MG TAB PO PRN (14:37)
[2019-11-02] MEDS ORDERED: Bisacodyl 10 MG SUPP PR PRN (14:37)
[2019-11-02] MEDS ORDERED: Mag-Al 1200 mg/1200 mg/30 ML UDCUP PO PRN (14:37)
[2019-11-02] MEDS ORDERED: Acetaminophen 325 MG TAB PO PRN (14:37)
[2019-11-02] MEDS ORDERED: Acetaminophen/Codeine 30-300mg Tablet PO PRN (14:37)
[2019-11-02] MEDS ORDERED: HYDROcodone/Acetaminophen 7.5/325 mg Tablet PO PRN (14:37)
[2019-11-02] MEDS ORDERED: Ondansetron PF 4 MG/2 ML Vial IVP PRN (14:37)
[2019-11-02] MEDS ORDERED: Morphine 2 MG/ML SYRINGE SLOW IVP PRN (14:37)
[2019-11-02] MEDS ORDERED: diphenhydrAMINE 25 MG CAP PO PRN (14:37)
[2019-11-02] MEDS ORDERED: SUMAtriptan Succinate 50 MG TAB PO PRN (14:38)
[2019-11-02] MEDS ORDERED: Labetalol HCl 100 MG/20 ML VIAL ONE (14:42)
[2019-11-02] MEDS ORDERED: Meperidine HCl/PF 25 MG/ML VIAL SLOW IVP PRN (14:43)
[2019-11-02] MEDS ORDERED: Promethazine HCl 25 MG/ML VIAL SLOW IVP PRN (14:43)
[2019-11-02] MEDS ORDERED: Promethazine HCl 25 MG/ML VIAL IM PRN (14:43)
[2019-11-02] MEDS ORDERED: Ondansetron HCl/PF 4 MG/2 ML Vial IVP PRN (14:43)
[2019-11-02] MEDS ORDERED: HYDROmorphone 2 MG/ML VIAL SLOW IVP PRN (14:43)
[2019-11-02] MEDS ORDERED: PACU-Morphine 4MG/ML VIAL SLOW IVP PRN (14:43)
[2019-11-02] MEDS ORDERED: Morphine Sulfate 2 MG/ML SYRINGE SLOW IVP PRN (14:43)
[2019-11-02] MEDS ORDERED: Labetalol HCl 100 MG/20 ML VIAL SLOW IVP SCH (14:45)
[2019-11-02] MEDS ORDERED: Ketorolac Tromethamine 0.5% Ophth Soln 3 ml Bottle EA EYE PRN (15:26)
[2019-11-02] MEDS: Sodium Chloride 0.9% 1,000 ML IV SCH (18:13)
[2019-11-02] MEDS ORDERED: CEFAZOLIN 2 GM in Premix Bag 1 BAG IVPB SCH (19:00)
[2019-11-02] MEDS: Gabapentin 300 MG CAP PO SCH (20:19)
[2019-11-02] MEDS: CEFAZOLIN 2 GM in Premix Bag 1 BAG IVPB SCH (20:20)
[2019-11-02] MEDS: tiZANidine HCl 4 MG TAB PO PRN (20:23)
[2019-11-02] MEDS: oxyCODONE 5 MG TAB PO PRN (20:23)
[2019-11-03] MEDS: Sodium Chloride 0.9% 1,000 ML IV SCH (00:47)
[2019-11-03] MEDS: oxyCODONE 5 MG TAB PO PRN ×2 (02:10→05:48)
[2019-11-03] MEDS: tiZANidine HCl 4 MG TAB PO PRN (03:53)
[2019-11-03] MEDS: CEFAZOLIN 2 GM in Premix Bag 1 BAG IVPB SCH (03:54)
--- NOTE | 2019-11-03 06:05 | OP ---
DATE OF PROCEDURE: 11/02/2019 LOCATION: OR 12. HEAD OF STOCK: Nuvia Flores PA-C. PREPROCEDURE DIAGNOSES: Proximal adjacent segment disease, lumbar stenosis, low back and leg pain. POSTPROCEDURE DIAGNOSES: Proximal adjacent segment disease, lumbar stenosis, low back and leg pain. PROCEDURES PERFORMED: L3-L4 laminectomy, partial facetectomy, foraminotomies. DESCRIPTION OF PROCEDURE: After informed consent was obtained from the patient, the patient was brought to the OR. Proper patient, pause, and identification were carried out. She was placed under excellent general endotracheal anesthesia and positioned prone on the OR table. All appropriate points were padded. We identified the prior lumbar wound and this area was sterilely cleansed, prepared, and draped. Proper patient, pause, and identification were carried out. The wound was then opened with combination of sharp, monopolar, and blunt dissection. The L3-L4 spinous processes and lamina were exposed. Localization film confirmed our area of interest. We then performed L3-L4 laminectomy, partial facetectomy, foraminotomies. We had excellent decompression of common dural tube and nerve roots at the L3-L4 with L3-L4 laminectomy, partial facetectomy, and foraminotomy. Copious irrigation occurred throughout as did maximizing hemostasis. The wound was then closed in anatomic layers following sprinkling of vancomycin powder. The patient emerged from anesthesia. Job ID: [id number]
[2019-11-03] MEDS: Gabapentin 300 MG CAP PO SCH (08:04)
[2019-11-03 08:33] VITALS: BP 134/67; TEMP 98.3
--- NOTE | 2019-11-03 08:46 | PRG ---
DATE OF SERVICE: 11/03/2019 Ms. Corrigan is one day out from a laminectomy at L3-L4. She is already out of bed in her street clothes. She has been ambulating around the hallways and she is ready for discharge. She understands activity restrictions and followup arrangements as well as wound care. Job ID: [id number]
[2019-11-03] MEDS ORDERED: DULoxetine 30 MG CAP PO SCH (09:00)
--- NOTE | 2019-11-04 08:20 | DIS ---
DATE OF ADMISSION: 11/02/2019 DATE OF DISCHARGE: 11/03/2019 HISTORY: Ms. Corrigan is a 69 year-old female who is one day out from laminectomy at L3-L4. Following her surgery, she was transitioned to the med/ surg floor where her pain has been well controlled with p.o. medications. She is tolerating a regular diet and is voiding appropriately. She is doing well and ambulating easily in the hallways and is anxious to go home today. PHYSICAL EXAMINATION: Today, she is awake, alert, in no acute distress. She has free active range of motion of all extremities. No focal motor weakness. No reflex asymmetry. Her incision is clean, dry, and intact. PLAN: We will plan to dismiss her home today. I have discussed home care precautions with her and her . CONDITION ON DISCHARGE: The patient had no emergencies. Condition was stable for discharge. MEDICATIONS: Home going medications were reviewed. FOLLOWUP: Follow up arrangements made by our records management coordinator in the clinic and call to the patient. ACTIVITIES: Restrictions were reviewed in person. Wound care showers are acceptable. The patient should pat the incision dry, but not submerge it under the surface of the body of water for 2 months. Job ID: [id number] [facility]
== END 2019-11-03 10:05 | disposition home or self-care (01) | DRG 517 ==
LOC: SDC 09:55 → SURG A 17:24
PROVIDERS: ADMIT Surgery; ATTEND Surgery
PROC: 01NB0ZZ Release Lumbar Nerve, Open Approach (ICD-10-PCS; principal; 2019-11-02)
DX: M48.062 Spinal stenosis, lumbar region with neurogenic claudication (principal); M51.26 Other intervertebral disc displacement, lumbar region; M51.16 Intervertebral disc disorders with radiculopathy, lumbar region; Z11.59 Encounter for screening for other viral diseases; G43.909 Migraine, unspecified, not intractable, without status migrainosus; J30.2 Other seasonal allergic rhinitis; M19.90 Unspecified osteoarthritis, unspecified site; F41.9 Anxiety disorder, unspecified; Z90.710 Acquired absence of both cervix and uterus; Z01.812 Encounter for preprocedural laboratory examination
CPT/HCPCS: 76000; 80048; 85027; 85610; 85730; 87635; 93005; J0690; J1100; J1170; J2001; J2270; J2405; J2704; J3010; J3370; J3490; U0003

== ENCOUNTER 2020-09-11 08:37 | Outpatient (CLI) | payer MEDICARE ==
[2020-09-11 09:44] LABS: #Eosinphils 0.1 10x3/uL (0.0-0.5); #Monocytes 0.4 10x3/uL (0.0-1.1); #Neutrophils 2.3 10x3/uL (1.5-8.4); %Basophils 0.6 % (0.0-2.0); %Eosinophils 1.4 % (0.0-6.0); %Lymphocytes 44.5 % (18.0-47.0); %Monocytes 7.3 % (0.0-10.0); %Neutrophils 45.8 % (40.0-75.0); Hemoglobin 13.1 g/dL (12.0-15.5); Mean Corpuscular HGB CONC 33.3 g/dL (32.0-36.0); Mean Corpuscular Volume 95.9 fl (81.6-98.3); Mean Platelet Volume 10.3 fl (7.4-10.4); Platelet Count 229 10x3/uL (150-450); RBC Distribution Width 12.5 % (11.5-14.5); White Blood Cell (WBC) Count 5.1 10x3/uL (3.5-10.5)
[2020-09-11 10:01] LABS: Bilirubin Neg (Negative); Blood, Urine Negative (Negative); Clarity Clear (Clear); Glucose, Urine (Dipstick) Normal (Negative); Ketone, Urine 5 mg/dL (Negative); Leukocyte 25 (Negative); Nitrite Negative (Negative); Protein, Urine (Dipstick) 30 mg/dl (Neg-Trace); Specific Gravity, Urine 1.025 (1.002-1.036)
[2020-09-11 10:12] LABS: Bacteria/HPF Rare-Few HPF (None Seen); Mucous/LPF 2+ LPF (<2+); RBC/HPF 0-3 HPF (0-3); Squamous Epithelial 0-3 HPF (0-3); WBC/HPF 0-3 HPF (0-3)
[2020-09-11 16:44] LABS: SARS-CoV-2 PCR by NAA Not Detected (NotDetected)
== END 2020-09-11 08:38 | disposition home or self-care (01) ==
LOC: LABBT 08:37
PROVIDERS: ATTEND Orthopaedic Surgery Hand Surgery
DX: Z01.818 Encounter for other preprocedural examination (principal); Z20.822 Contact with and (suspected) exposure to COVID-19; G57.02 Lesion of sciatic nerve, left lower limb; M76.32 Iliotibial band syndrome, left leg
CPT/HCPCS: 81001; 85025; 93005; U0003; U0005; 87635; 93010

== ENCOUNTER 2020-09-16 05:49 | Day surgery (SDC) | payer MEDICARE ==
[2020-09-15 11:29] VITALS: BMI 21.7
[2020-09-16] MEDS ORDERED: Fentanyl 100 MCG/2 ML VIAL ONE (06:15)
[2020-09-16] MEDS ORDERED: Bupivacaine PF 0.5% 30 ML VIAL ONE (06:24)
[2020-09-16] MEDS ORDERED: Betamet Acet/Betamet Na Ph 30 MG/5 ML VIAL ONE ×2 (06:24→08:16)
[2020-09-16] MEDS ORDERED: Bacitracin Zinc Ointment 30 gm TUBE ONE (06:24)
[2020-09-16] MEDS ORDERED: Sodium Chloride 0.9% 10 ML ONE (07:04)
[2020-09-16] MEDS ORDERED: Metoclopramide HCl 10 MG/2 ML VIAL ONE ×2 (07:07→07:12)
[2020-09-16] MEDS ORDERED: Famotidine/PF 20 mg/2ml Vial ONE ×2 (07:08→07:11)
[2020-09-16] MEDS ORDERED: PROPOFOL 200 MG/20 ML VIAL ONE (07:26)
[2020-09-16] MEDS ORDERED: Lidocaine 1% PF 5 ML VIAL ONE (07:26)
[2020-09-16] MEDS ORDERED: Dexamethasone 20 MG/5 ML VIAL ONE (07:26)
[2020-09-16] MEDS ORDERED: Ondansetron PF 4 MG/2 ML Vial ONE (07:26)
[2020-09-16] MEDS ORDERED: Ketorolac Tromethamine 30 MG/ML VIAL ONE (09:17)
== END 2020-09-16 11:00 | disposition home or self-care (01) ==
LOC: SDC 05:49
PROVIDERS: ATTEND Orthopaedic Surgery Hand Surgery
PROC: 01N Peripheral Nervous System, Release (ICD-10-PCS; principal; 2020-09-16)
DX: G57.02 Lesion of sciatic nerve, left lower limb (principal); M76.822 Posterior tibial tendinitis, left leg; M70.62 Trochanteric bursitis, left hip; Z79.82 Long term (current) use of aspirin; Z79.899 Other long term (current) drug therapy; Z91.040 Latex allergy status; Z91.048 Other nonmedicinal substance allergy status
CPT/HCPCS: J0690; J0702; J1100; J1885; J2405; J2704; J2765; J3010; J3490; S0020; S0028

== ENCOUNTER 2020-10-15 10:29 | Outpatient (CLI) | payer MEDICARE | END 2020-10-15 10:30 | disposition home or self-care (01) | LOC: SCSMRI 10:29 | PROVIDERS: ATTEND Orthopaedic Surgery Hand Surgery | DX: S63.8X2A Sprain of other part of left wrist and hand, initial encounter (principal); S52.502A Unspecified fracture of the lower end of left radius, initial encounter for closed fracture; S52.612A Displaced fracture of left ulna styloid process, initial encounter for closed fracture ==

== ENCOUNTER 2021-04-22 13:06 | Observation (INO) | payer MEDICARE ==
[~2021-04-22 13:06] MED LIST changes: +Iopamidol-370 76% 500 ML 1 ML ONE; -Prevnar 13-Val Conj/PF 0.5 ML SYRINGE IM ONE
[2021-04-22 13:39] LABS: #Basophils 0.1 thou/uL (0.0-0.2); #Eosinphils 0.1 thou/uL (0.0-0.7); #Lymphocytes 2.9 thou/uL (1.20-3.40); #Monocytes 0.5 thou/uL (0.11-0.59); #Neutrophils 4.6 thou/uL (1.40-6.50); %Eosinophils 0.7 % (0.0-10.0); %Lymphocytes 35.7 % (21.0-51.0); %Monocytes 6.3 % (0.0-10.0); %Neutrophils 56.3 % (42.0-75.0); Hemoglobin 14.5 g/dL (12.0-16.0); Mean Corpuscular HGB CONC 36.1 g/dL (32.0-36.0); Mean Corpuscular Hemoglobin 35.2 pg (27.0-31.0); Mean Corpuscular Volume 97.4 fL (78.0-98.0); Mean Platelet Volume 7.4 fL (7.4-10.4); Platelet Count 255 thou/uL (130-400); RBC Distribution Width 11.6 % (11.5-14.5); Red Blood Cell (RBC) Count 4.12 mill/uL (4.20-5.40); White Blood Cell (WBC) Count 8.2 thou/uL (4.8-10.8)
[2021-04-22 13:49] LABS: PTT 29.2 sec (22.9-36.1); Prothrombin Time 12.7 sec (12.0-14.7)
[2021-04-22 13:50] LABS: INR-International Normal Ratio 0.9
[2021-04-22 13:55] LABS: ALT (SGPT) 7 U/L (8-55); AST (SGOT) 15 U/L (5-34); Albumin 4.4 g/dL (3.4-4.8); Alkaline Phosphatase 103 U/L (40-110); Anion Gap 15 mmol/L (10-20); BUN (Urea Nitrogen) 16 mg/dL (9.8-20.1); Bilirubin, Total 0.4 mg/dL (0.2-1.2); Calc. Creatinine Clearance 0 mL/min (70-130); Calcium 9.7 mg/dL (7.8-10.44); Carbon Dioxide 25 mmol/L (23-31); Chloride 102 mmol/L (98-107); Globulin 3.1 g/dL (2.4-3.5); Glucose 128 mg/dL (83-110); Protein, Total 7.5 g/dL (5.8-8.1); Sodium 139 mmol/L (136-145)
[2021-04-22 13:58] LABS: Potassium 2.8 mmol/L (3.5-5.1)
[2021-04-22] MEDS ORDERED: Potassium Chloride 20 MEQ TAB ONE ×2 (14:27)
== END 2021-04-22 15:46 | disposition left against medical advice (07) ==
LOC: ERS 13:06 → ERHOLD 14:41
PROVIDERS: ADMIT Family Medicine; ATTEND Family Medicine
DX: R29.810 Facial weakness (principal); E87.6 Hypokalemia; E04.1 Nontoxic single thyroid nodule; M19.90 Unspecified osteoarthritis, unspecified site; Z53.29 Procedure and treatment not carried out because of patient's decision for other reasons; Z91.040 Latex allergy status; Z91.048 Other nonmedicinal substance allergy status
CPT/HCPCS: 36416; 70450; 70496; 70498; 71045; 80053; 84484; 85025; 85610; 85730; 93005; 94760; Q9967

== ENCOUNTER 2021-08-26 06:01 | Emergency (ER) | payer MEDICARE ==
[2021-08-26] MEDS ORDERED: Morphine 4 MG/ML VIAL ONE (06:18)
[2021-08-26] MEDS ORDERED: Ondansetron PF 4 MG/2 ML Vial ONE ×2 (06:18→06:37)
[2021-08-26 06:40] LABS: #Basophils 0.1 thou/uL (0.0-0.2); #Eosinphils 0.1 thou/uL (0.0-0.7); #Lymphocytes 2.5 thou/uL (1.20-3.40); #Monocytes 0.4 thou/uL (0.11-0.59); #Neutrophils 4.8 thou/uL (1.40-6.50); %Basophils 0.9 % (0.0-1.0); %Eosinophils 1.4 % (0.0-10.0); %Lymphocytes 31.5 % (21.0-51.0); %Monocytes 4.5 % (0.0-10.0); %Neutrophils 61.7 % (42.0-75.0); Hemoglobin 14.4 g/dL (12.0-16.0); Mean Corpuscular Hemoglobin 32.9 pg (27.0-31.0); Mean Corpuscular Volume 96.9 fL (78.0-98.0); Mean Platelet Volume 7.2 fL (7.4-10.4); Platelet Count 255 thou/uL (130-400); RBC Distribution Width 11.9 % (11.5-14.5); Red Blood Cell (RBC) Count 4.37 mill/uL (4.20-5.40); White Blood Cell (WBC) Count 7.8 thou/uL (4.8-10.8)
[2021-08-26] MEDS ORDERED: Fentanyl 100 MCG/2 ML VIAL ONE (06:48)
[2021-08-26 06:49] LABS: Bilirubin Negative (Negative); Blood, Urine Negative (Negative); Clarity Clear (Clear); Glucose, Urine (Dipstick) 30 mg/dL (Negative); Ketone, Urine Negative (Negative); Leukocyte Negative Leu/uL (Negative); Nitrite Negative (Negative); Protein, Urine (Dipstick) Negative (Neg-Trace); Specific Gravity, Urine 1.012 (1.002-1.036); Urobilinogen Normal mg/dL (Less than 2); pH, Urine 7.5 (5.0-9.0)
[2021-08-26 06:52] LABS: ALT (SGPT) 7 U/L (8-55); AST (SGOT) 17 U/L (5-34); Albumin 4.4 g/dL (3.4-4.8); Alkaline Phosphatase 101 U/L (40-110); Anion Gap 16 mmol/L (10-20); BUN (Urea Nitrogen) 11 mg/dL (9.8-20.1); Bilirubin, Total 0.3 mg/dL (0.2-1.2); Calc. Creatinine Clearance 0 mL/min (70-130); Calcium 9.7 mg/dL (7.8-10.44); Carbon Dioxide 26 mmol/L (23-31); Chloride 104 mmol/L (98-107); Globulin 3.1 g/dL (2.4-3.5); Glucose 146 mg/dL (83-110); Lipase 20 U/L (8-78); Magnesium 2.1 mg/dL (1.6-2.6); Potassium 3.4 mmol/L (3.5-5.1); Protein, Total 7.5 g/dL (5.8-8.1); Sodium 143 mmol/L (136-145)
[2021-08-26] MEDS ORDERED: Ketamine 50 MG/ML (10ML VIAL) ONE (07:10)
[2021-08-26 09:24] LABS: Lactic Acid 1.9 mmol/L (0.5-2.2)
== END 2021-08-26 09:55 | disposition left against medical advice (07) ==
LOC: ERS 06:01
DX: N13.2 Hydronephrosis with renal and ureteral calculous obstruction (principal)
CPT/HCPCS: 36415; 51701; 74177; 80053; 81003; 83605; 83690; 83735; 85025; 93005; 96374; 96375; J2270; J2405; J3010

== ENCOUNTER 2021-11-10 07:26 | Outpatient (CLI) | payer MEDICARE | END 2021-11-10 07:27 | disposition home or self-care (01) | LOC: SCSMRI 07:26 | PROVIDERS: ATTEND Orthopaedic Surgery | DX: S46.011A Strain of muscle(s) and tendon(s) of the rotator cuff of right shoulder, initial encounter (principal); M65.811 Other synovitis and tenosynovitis, right shoulder ==

== ENCOUNTER 2022-06-07 08:43 | Outpatient (CLI) | payer MEDICARE | END 2022-06-07 08:44 | disposition home or self-care (01) | LOC: SCSMRI 08:43 | PROVIDERS: ATTEND Psychiatry & Neurology Neurology | DX: R29.6 Repeated falls (principal); I67.89 Other cerebrovascular disease | CPT/HCPCS: 70551 ==